=== PATIENT | female | born 1945 | race Caucasian/White ===

== ENCOUNTER 2024-02-28 13:45 | Emergency (ER) | payer OTHER, SELFPAY ==
[2024-02-28] VITALS (11 sets, daily range): BP systolic 154–194; BP diastolic 74–105; PULSE 76–93; RESP 14–19; TEMP 37.1; O2SAT 96–98; BMI 22.9
--- NOTE | 2024-02-28 13:56 | DI.RAD.S_ITS ---
PROCEDURE: XR CHEST 1V INDICATIONS: chest pain TECHNIQUE: One view of the chest was acquired. COMPARISON: None. FINDINGS: Surgical changes and devices: None. Lungs and pleura: Lungs are clear. No pleural effusions or pneumothorax. Mediastinum: Mediastinal contours appear normal. Heart size is normal. Bones and chest wall: No suspicious bony lesions. Overlying soft tissues appear unremarkable. IMPRESSION: No acute cardiopulmonary abnormality is seen. Dictated by: Jose Robles M.D. on 02/28/2024 at 15:03 Approved by: Jose Robles M.D. on 02/28/2024 at 15:03
--- NOTE | 2024-02-28 14:06 | ED_ITS ---
HPI - General Adult General Chief complaint: Hypertension Stated complaint: HBP, vision changes, lightheaded Time Seen by Provider: 02/28/24 14:06 Mode of arrival: Wheelchair History of Present Illness HPI narrative: 79-year-old woman with a history of hypertension treated with lisinopril hydrochlorothiazide was in [facility] 2 weeks ago using some disposable wipes to clean off eye makeup and has noticed increased swelling and erythema around both eyes. She has since stopped the eye wipes but is continuing to have redness and swelling to the point that are eyes are almost closed shut in the mornings. No visual changes or corneal irritability. Today she was feeling slightly dizzy with some central chest pressure took her blood pressure at home and found it to be significantly elevated initially went to the walk-in clinic and then presented to the emergency department for further workup. With no further intervention her blood pressure has come down slightly in the emergency department. She is still having the eye puffiness but the central chest pressure and head fullness/dizziness has resolved. She has never had similar findings. She does not note any nausea, vomiting, diarrhea. No paresthesias or weakness. No lower extremity edema Related Data Home Medications Medication Instructions Recorded Confirmed acyclovir 200 mg capsule 200 mg PO TID 11/20/22 01/10/23 lisinopril 20 1 tab PO DAILY 11/20/22 01/10/23 mg-hydrochlorothiazide 25 mg tablet Previous Rx's Medication Instructions Recorded mupirocin 2 % topical ointment 1 applic topical TID #22 grams 11/20/22 methylprednisolone 4 mg tablets in See Rx Instructions PO .COMPLEX 02/28/24 a dose pack (Medrol (Davin)) #21 ea Allergies Allergy/AdvReac Type Severity Reaction Status Date / Time No Known Drug Allergies Allergy Unverified 02/28/24 13:56 Review of Systems Review of Systems Narrative: Pertinent positive and negative findings as per HPI Patient History Medical History (Updated 02/28/24 @ 17:24 by Cori Donnelly MD) Hypertension Social History Smoking Status: Never smoker Smoking Status: Never smoker alcohol intake frequency: 0-2 drinks per day Alcohol type: wine Substance Use Type: does not use Exam Initial Vital Signs Initial Vital Signs: Vital Signs Pulse Rate 91 H 02/28/24 13:52 Blood Pressure 192/101 H 02/28/24 13:52 Pulse Oximetry 97 02/28/24 13:52 General: Healthy appearing, appears uncomfortable with itching around her eyes HEENT: Moist mucous membranes, puffiness with mild erythema periorbitally bilaterally. Slight scleral injection bilaterally. No eye discharge appreciated Respiratory: Lungs are clear to auscultation, no wheezing no rales no rhonchi. Full and symmetrical air movement Cardiac: Regular rate and rhythm no murmurs no bruits Abdomen: Soft, nontender, good bowel tones, no flank pain Skin: Warm and dry, no rashes Neurologic: Grossly neurologically intact with no obvious asymmetries or abnormalities Extremities: No trauma, well perfused Psych: Cooperative, appropriate insight and affect Course Orders Ordered: ED Orders 02/28/24 13:56 XR chest 1V Stat EKG-12 Lead Stat 02/28/24 14:06 Complete Blood Count AUTO DIFF Stat Comprehensive Metabolic Panel Stat Lipase Stat Magnesium Stat NT-proBNP (BNP-Adult 18+) Stat PTT Partial Thromboplastin Joey Stat Prothrombin Time INR Stat Troponin & CK Cardiac Panel Stat Discontinued Medications Aspirin (Aspirin 81 Mg Chew Tab) 324 mg PO NOW ONE Stop: 02/28/24 13:57 Last Admin: 02/28/24 14:14 Dose: Not Given Documented By: HERO Lisinopril (Lisinopril 20 Mg Tablet) 20 mg PO NOW ONE Stop: 02/28/24 14:47 Last Admin: 02/28/24 15:00 Dose: 20 mg Documented By: HERO Methylprednisolone (Methylprednisolone 125 Mg/2 Ml Vial) 60 mg IV NOW ONE Stop: 02/28/24 14:47 Last Admin: 02/28/24 15:00 Dose: 60 mg Documented By: HERO Vital Signs Vital signs: Vital Signs - 8 hr 02/28/24 13:52 02/28/24 13:52 02/28/24 13:54 Temperature 98.7 F Pulse Rate 91 H 87 Respiratory Rate 16 Blood Pressure 192/101 H 192/101 H Pulse Oximetry 97 97 Oxygen Delivery Method Room Air 02/28/24 14:00 02/28/24 14:00 02/28/24 14:30 Temperature Pulse Rate 93 H Respiratory Rate 19 Blood Pressure 194/105 H 164/79 H Pulse Oximetry 97 Oxygen Delivery Method 02/28/24 14:30 02/28/24 15:00 02/28/24 15:00 Temperature Pulse Rate 79 81 Respiratory Rate 15 Blood Pressure 164/79 H 162/78 H Pulse Oximetry 98 Oxygen Delivery Method 02/28/24 15:00 02/28/24 15:30 02/28/24 15:30 Temperature Pulse Rate 82 84 Respiratory Rate 14 16 Blood Pressure 154/74 H Pulse Oximetry 97 97 Oxygen Delivery Method 02/28/24 15:52 02/28/24 15:52 02/28/24 16:00 Temperature Pulse Rate 78 Respiratory Rate 18 Blood Pressure 161/77 H 155/77 H Pulse Oximetry 97 Oxygen Delivery Method 02/28/24 16:00 02/28/24 16:30 02/28/24 16:30 Temperature Pulse Rate 76 78 Respiratory Rate 15 16 Blood Pressure 160/84 H Pulse Oximetry 98 97 Oxygen Delivery Method 02/28/24 17:00 02/28/24 17:00 02/28/24 17:12 Temperature Pulse Rate 79 82 Respiratory Rate 16 14 Blood Pressure 170/87 H Pulse Oximetry 96 96 Oxygen Delivery Method 02/28/24 17:12 Temperature Pulse Rate Respiratory Rate Blood Pressure 187/97 H Pulse Oximetry Oxygen Delivery Method Medical Decision Making Lab Data 02/28/24 14:06 02/28/24 14:06 Labs: Lab Results 02/28/24 Range/Units 14:06 WBC 11.3 H (4.5-11.0) X10^3/uL RBC 5.19 (4.0-5.2) X10^6/uL Hgb 16.0 (12.0-16.0) g/dL Hct 47.6 H (36-46) % MCV 91.6 (80-100) fL MCH 30.8 (26-34) PG MCHC 33.6 (30-36) % RDW 12.7 (11.6-14.8) % Plt Count 313 (150-400) X10^3/uL Neut % (Auto) 74.7 (50-75) % Lymph % (Auto) 15.9 L (25-40) % Morgan % (Auto) 7.4 (3-14) % Eos % (Auto) 1.7 L (2-4) % Baso % (Auto) 0.3 (0-2) % Neut # (Auto) 8500 H (5404-8623) /uL Lymph # (Auto) 1800 (2582-6346) /uL Morgan # (Auto) 800 (0-900) /uL Eos # (Auto) 200 (0-450) /uL Baso # (Auto) 0 (0-100) /uL PT 10.5 (9.4-12.5) SECONDS INR 0.9 (0.9-1.3) APTT 41 H (25.1-36.5) SECONDS Sodium 138 (137-145) mmol/L Potassium 3.6 (3.4-5.1) mmol/L Chloride 102 (98-107) mmol/L Carbon Dioxide 27 (22-32) mmol/L BUN 21 H (7-17) mg/dL Creatinine 0.56 (0.52-1.04) mg/dL Estimated GFR > 60 (>60) mL/min BUN/Creatinine Ratio 37.5 H (6-22) Glucose 105 (80-110) mg/dL Calcium 10.3 H (8.4-10.2) mg/dL Magnesium 1.9 (1.6-2.3) mg/dL Total Bilirubin 0.7 (0.2-1.3) mg/dL AST 42 H (14-36) IU/L ALT 35 H (<35) IU/L Alkaline Phosphatase 98 (38-126) U/L Total Creatine Kinase 48 (30-135) U/L Troponin I < 0.012 (0.01-0.034) ng/mL NT-Pro-B Natriuret Pep 120 (<450) pg/mL Total Protein 7.6 (6.3-8.2) g/dL Albumin 4.9 (3.5-5.0) g/dL Globulin 2.7 (1.7-4.1) g/dL Albumin/Globulin Ratio 1.8 (1.0-2.8) Lipase 404 H (23-300) U/L MDM Narrative Medical decision making narrative: CC: Persistent periocular irritation, elevated blood pressure today Complicating co-morbidities: Hypertension Data collected from: patient Differential considered: Acute coronary syndrome, hypertensive crisis, persistent allergic reaction with secondary irritation and hypertension Exam documented above, pertinent findings include: Aside from the puffiness and redness around the eyes, exam is otherwise completely benign. Heart and lungs are within normal limits there has no lower extremity edema Lab Test results independently reviewed as above. Pertinent findings: CBC shows leukocytosis minimally at 11.3 without left shift Chemistries are notable for minimally elevated AST and ALT Troponin is undetectable ProBNP is not elevated Lipase is minimally elevated at 404 with no corresponding upper abdominal pain Independently reviewed EKG: Sinus rhythm, right bundle branch block. No acute ischemic change Imaging studies independently reviewed: Chest x-ray is benign Treatments: Oral lisinopril, parenteral Solu-Medrol 60 mg Discussion: Patient is re-evaluated and is feeling much better off the Solu- Medrol. The redness and puffiness around her eyes has improved significantly. Her blood pressure was still slightly elevated but she is not having chest pain, dyspnea, headaches, paresthesia or other findings. We discussed Medrol Dosepak for the next few days to make sure that the allergic reaction is treated. I suspect that the acute allergic reaction around her eyes is causing enough systemic symptoms that that is the source of her increased blood pressure. I am not seeing any evidence of acute coronary syndrome, congestive heart failure, stroke, hypertensive crisis or alternative explanation that would require further evaluation, imaging or hospitalization. I did suggest that patient take her usual dose of lisinopril in the morning. 2-3 hours later, check her blood pressure and if it is greater than 160/80 to take a 2nd dose of her usual lisinopril. After that I strongly recommended that she not check blood pressure at all unless she has symptoms of stroke or heart attack. She expressed understanding. She has a routine schedule follow up with her primary care physician on Friday. At this point she is safe for discharge Discharge Plan Departure Patient Disposition: Home Clinical Impression: Elevated blood pressure reading Allergic reaction Qualifiers: Encounter type: initial encounter Qualified Code(s): T78.40XA - Allergy, unspecified, initial encounter Instructions: DI for High Blood Pressure Activity Restrictions/Additional Instructions: Thank you for coming in today You were given dose of steroid through your IV which significantly helped with the redness and swelling around her eyes. You noted that you feel better after this. I have given you a prescription for a Medrol Dosepak, decreasing dose of steroid for the next couple of days. I hope that when you wake up this morning, he noticed that there is much less swelling and debris around your eyes. Regarding your elevated blood pressure, it did begin to trend down with the extra dose of lisinopril given in the emergency department. There was no sign of heart attack, stroke or other life-threatening problems with your blood pressure at this time. It is safer to gradually lower your blood pressure with oral medications thean 2 dramatically treated in the emergency department Please take your lisinopril in the morning. 2-3 hours after taking the blood pressure medicine, do check your blood pressure. If it is higher than 160/80, take a 2nd dose of your lisinopril. Do not recheck your blood pressure after this. The only reason to recheck blood pressure would be because you have a severe headache, blurry vision, numbness or tingling, chest pain, palpitations or chest tightness. Please make sure you follow up with your primary care physician on Friday as scheduled. If you have new symptoms or finding please return to the ER Prescriptions: New methylprednisolone [Medrol (Davin)] 4 mg tablets,dose pack See Rx Instructions .ROUTE .COMPLEX Qty: 21 0RF Rx Instructions: for 6 days No Action lisinopril-hydrochlorothiazide 20-25 mg tablet 1 tab PO DAILY acyclovir 200 mg capsule 200 mg PO TID mupirocin 2 % ointment 1 applic topical TID Qty: 22 0RF Referrals: Miscellaneous,Doctor, MD [Primary Care Provider] - Stand Alone Forms: Patient Portal/API
--- NOTE | 2024-02-28 14:06 | EKG_ITS ---
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
[2024-02-28 14:16] LABS: Add Manual Diff / Slide Review NO; Basophils Absolute Auto 0 /uL (0-100); Basophils Percent Auto 0.3 % (0-2); Eosinophils Absolute Auto 200 /uL (0-450); Eosinophils Percent Auto 1.7 % (2-4); Hematocrit 47.6 % (36-46); Lymphocytes Absolute Auto 1800 /uL (1100-4500); Lymphocytes Percent Auto 15.9 % (25-40); Mean Corpuscular HGB Conc 33.6 % (30-36); Mean Corpuscular Hemoglobin 30.8 PG (26-34); Mean Corpuscular Volume 91.6 fL (80-100); Monocytes Absolute Auto 800 /uL (0-900); Monocytes Percent Auto 7.4 % (3-14); Neutrophils Absolute Auto 8500 /uL (1500-7000); Neutrophils Percent Auto 74.7 % (50-75); Platelet Count 313 X10^3/uL (150-400); Red Blood Cell Count 5.19 X10^6/uL (4.0-5.2); Red Cell Distribution Width 12.7 % (11.6-14.8); White Blood Cell Count 11.3 X10^3/uL (4.5-11.0)
[2024-02-28 14:21] LABS: INR 0.9 (0.9-1.3); Prothrombin Time 10.5 SECONDS (9.4-12.5)
--- NOTE | 2024-02-28 14:22 | PC.NURSE ---
Starting today patient reports feeling off, reports that shes been having some vision changes. Took her blood pressure this AM and reports that it was in the 200's systolic. takes lisinopril. Denies chest pain, n/v, headache
[2024-02-28 14:24] LABS: PTT Partial Thromboplastin Tim 41 SECONDS (25.1-36.5)
[2024-02-28 14:29] LABS: Alanine Aminotransferase 35 IU/L (<35); Albumin 4.9 g/dL (3.5-5.0); Albumin Globulin Ratio 1.8 (1.0-2.8); Alkaline Phosphatase 98 U/L (38-126); Aspartate Aminotransferase 42 IU/L (14-36); BUN Creatinine Ratio 37.5 (6-22); Bilirubin Total 0.7 mg/dL (0.2-1.3); Blood Urea Nitrogen 21 mg/dL (7-17); Calcium 10.3 mg/dL (8.4-10.2); Carbon Dioxide 27 mmol/L (22-32); Chloride 102 mmol/L (98-107); Creatine Kinase 48 U/L (30-135); Estimated Glomerular Filt Rate > 60 mL/min (>60); Globulin 2.7 g/dL (1.7-4.1); Glucose 105 mg/dL (80-110); HEMOLYSIS 18 (0-50); Lipase 404 U/L (23-300); Magnesium 1.9 mg/dL (1.6-2.3); Potassium 3.6 mmol/L (3.4-5.1); Sodium 138 mmol/L (137-145); Total Protein 7.6 g/dL (6.3-8.2)
[2024-02-28 14:41] LABS: NT-proBNP (BNP-Adult 18+) 120 pg/mL (<450); Troponin I < 0.012 ng/mL (0.01-0.034)
[2024-02-28] MEDS: lisinopriL 20 MG TABLET PO (15:00)
[2024-02-28] MEDS: methylPREDNISolone 125 MG/2 ML VIAL 60 MG IV (15:00)
--- NOTE | 2024-02-28 17:15 | PC.NURSE ---
Patient reports feeling much more herself and would like to leave, told this RN that she is anxious about driving home in the dark
== END 2024-02-28 17:35 | disposition home or self-care (01) ==
PROVIDERS: Emergency Provider Emergency Medicine
DX: R22.0 Localized swelling, mass and lump, head (principal); I10 Essential (primary) hypertension; T78.40XA Allergy, unspecified, initial encounter; R07.9 Chest pain, unspecified; R79.89 Other specified abnormal findings of blood chemistry
CPT/HCPCS: 36415; 71045; 80053; 82550; 83690; 83735; 83880; 84484; 85025; 85610; 85730; 93005; 96374; 99284; J2919